=== PATIENT | male | born 1985 | race Caucasian/White ===

== ENCOUNTER 2023-08-15 01:02 | Emergency (ER) | payer BC, SELFPAY ==
--- OUTSIDE RECORDS SUMMARY | 2023-08-15 01:07 | XMS REPORT | Continuity of Care Document ---
Author Name Unknown Address [address] [facility] [place] [address] [facility] thconnect Address [address] [facility] [place] [address] Care Team Providers Care Regional Trainer Name Role Phone Pcp, Patient Does Not Have A Primary Care Physic jessie Campaigns, Generic Provider Attending Clinician Unavailable AMRIT MOODY Attending Clinician Unavailable Amrit Moody MD Attending Clinician [phone] LILIAM PEREA Attending Clinician Unavailable Liliam Perea NP Attending Clinician [phone] Bryon Portillo Attending Clinician Unavailable GHADA VARGHESE Attending Clinician Unavailable CONNER SANTANA Attending Clinician Unavailable Conner Santana MD Attending Clinician [phone] Doctor Unassigned, [place] Attending Clinician U TROY Hollingsworth Attending Clinician Unavailable Troy Redding PA-C Attending Clinician [phone] BAILEY ERVIN Attending Clinician Unavailable Bailey Ervin MD Attending Clinician [phone] Johnna Richard Attending Clinician [phone] JOHNNA ROSENBAUM Attending Clinician Unavailable Unknown, Attending Attending Clinician Unavailab KEYANA Rivera Attending Clinician Unavailable Ebmichi FLIGHT STEWARD, Keyana Attending Clinician [phone] Venita FLIGHT STEWARD, Vipin B Attending Clinician [phone] VIPIN CANO Attending Clinician Unavailable Stevie Eckert Attending Clinician [phone] Miles FLIGHT STEWARD, Ronda Attending Clinician [phone] Nathan Lewis MD Attending Clinician [phone] Willy Ferro Attending Clinician [phone] WILLY ELMORE Attending Clinician Unavailable LATASHA BUTLER Attending Clinician Unavailable Mariana DE LEÓN, Vitor Attending Clinician [phone] NATHAN LEWIS Attending Clinician Unavaillia Atkinson, [facility] Attending Clinician Unavaillia Silveira MD, Ananda Attending Clinician [phone] Caitlyn Ortiz MD Attending Clinician [phone] NANCI VIGIL Attending Clinician Unavail able JOSE MANUEL ALBERTS Attending Clinician Unavailable YOLY LOPES Attending Clinician Unavailable LILIAM PEREA Admitting Clinician Unavailable Physician, No Primary or Family Admitting Clinic jessie Unavailable GHADA VARGHESE Admitting Clinician Unavailable CONNER SANTANA Admitting Clinician Unavailable Tj DE LEÓN, Conner Chandler Admitting Clinician [phone] BAILEY ERVIN Admitting Clinician Unavailable KEYANA RADFORD Admitting Clinician Unavailable VIPIN CANO Admitting Clinician Unavailable NANCI VIGIL Admitting Clinician Unavail able EMERGENCY ROOM, EMERGENCY Admitting Clinician Un available Payers Payer Name Policy Type Policy Number Effective Date Expirati on Date Source Problems Condition Name Condition Details Condition Category Status Onset Date Resolution Date Last Treatment Date Treating Clinician Comments Source Flank pain Flank pain Disease Active 09-02 00:00: 00 [facility] Obesity (BMI 30-39.9) Obesity (BMI 30-39.9) Disease Active 09-02 00:00: 00 [facility] Renal colic on left side Renal colic on left side Disease Active 08-30 00:00: 00 [facility] Allergies, Adverse Reactions, Alerts Allergy Name Allergy Type Status Severity Reaction(s) Onset Date Inactive Date Treating Clinician Comments Source SEAFOOD/ FISH Food Active Anaphylaxis 08-31 00:00: 00 [facility] IODINE AND IODIDE CONTAINI NG PRODUCTS Drug Class Active Anaphylaxis 08-31 00:00: 00 [facility] SHELLFIS H DERIVED DRUG INGREDI Active Anaphylaxis 08-31 00:00: 00 [facility] Iodine And Iodide Containi ng Products Propensi ty to adverse reaction s Active Anaphylaxis 08-31 00:00: 00 [facility] Seafood/ Fish Propensi ty to adverse reaction s Active Anaphylaxis 08-31 00:00: 00 [facility] Iodine And Iodide Containi ng Products Propensi ty to adverse reaction s Active Anaphylaxis 08-31 00:00: 00 [facility] Shellfis h Derived Propensi ty to adverse reaction s Active Anaphylaxis 08-31 00:00: 00 [facility] MEPERIDI NE (PF) DRUG Active Hives 0 07-22 00:00: 00 [facility] Meperidi ne (Pf) Propensi ty to adverse reaction s Active Hives 07-22 00:00: 00 [facility] iodine DA Active SV ANAPHYLAXIS 2012-02 00:00: 00 [facility] meperidi ne DA Active SV RASH 2012-02 00:00: 00 [facility] Social History Social Habit Start Date Stop Date Quantity Comments Source History of tobacco use Cigarette Smoker [facility] Gender identity [facility] Alcohol intake 2023-04-13 00:00:00 2023-04-13 00:00:00 Current non-drinker of alcohol (finding) [facility] Exposure to SARS-CoV-2 (event) 2021-12-06 00:00:00 2021-12-16 11:16:00 Not sure [facility] Cigarettes smoked current (pack per day) - Reported 2021-10-09 00:00:00 2021-10-09 00:00:00 [facility] Cigarette pack-years 2021-10-09 00:00:00 2021-10-09 00:00:00 [facility] Tobacco use and exposure 2021-10-09 00:00:00 2021-10-09 00:00:00 User of smokeless tobacco [facility] History of Social function 2019-12-06 00:00:00 2019-12-06 00:00:00 [facility] Sex Ass[birth year] At 1985 00:00:00 1985 00:00:00 [facility] Smoking Status Start Date Stop Date Source Smokes tobacco daily 2021-10-09 00:00:00 [facility] Medications Ordered Medication Name Filled Medication Name Start Date Stop Date Current Medication? Ordering Clinician Indication Dosage Frequency Signature (SIG) Comments Components Source HYDROcodone -acetaminop hen (NORCO 5) 5-325 mg tablet 1 tablet 04-11 01:49: 38 Yes 1{tbl} 1 tablet, Oral, Q6HPRN, Starting on 04/11/23 at 1949, Until Discontinu ed, Routine, Pain (scale 4-6), Pain (scale 7-10) [facility] lidocaine 2% (XYLOCAINE) 20 mg/mL (2 %) injection 10 mL 04-11 01:45: 00 04-11 01:45 :00 No 10mL 10 mL, Infiltrati on, ONCE, 1 dose, On Wed04/11/23 at 1945, MARIA G [facility] HYDROcodone -acetaminop hen (NORCO 5) 5-325 mg tablet 1 tablet 04-11 01:30: 00 04-11 00:53 :00 No 1{tbl} 1 tablet, Oral, ONCE, 1 dose, On Wed04/11/23 at 1930, Routine [facility] acetaminoph en-codeine 300-30 mg tablet 04-10 00:00: 00 04-18 04:59 :00 No [id number] 1{tbl} Take 1 tablet by mouth every 4 (four) hours as needed for Pain (scale 4-6) or Pain (scale 7-10) for up to 7 days. Indication s: acute pain [facility] doxycycline hyclate 100 mg capsule 03 00:00: 00 04-18 04:59 :00 No [id number] 100mg Take 1 capsule by mouth every 12 (twelve) hours for 7 days. [facility] NaCl 0.9% (NS) bolus infusion 1,000 mL 02-15 23:15: 00 02-16 00:36 :00 No 1000mL at 999 mL/hr, 1,000 mL, IV Infusion, ONCE, 1 dose, On Wed02/15/23 at 1715, [facility] ketorolac (TORADOL) injection 15 mg 02-15 23:15: 00 02-15 23:25 :00 No 15mg 15 mg, Slow IV Push, ONCE, 1 dose, On Wed02/15/23 at 1715, Routine [facility] erythromyci n (ILOTYCIN) 5 mg/gram (0.5 %) ophthalmic ointment 0.5 Inch 08-15 18:45: 00 08-15 18:40 :00 No .5[in_u s] 0.5 Inch, Right Eye, ONCE, 1 dose, On 08/15/22 at 1345, [facility] moxifloxaci n (VIGAMOX) 0.5 % ophthalmic drops 1 Drop 08-15 18:45: 00 08-15 18:34 :00 No 1[drp] 1 Drop, Right Eye, ONCE, 1 dose, On 08/15/22 at 1345, [facility] moxifloxaci n 0.5 % ophthalmic drops 08-15 00:00: 00 Yes [id number] 1[drp] Place 1 Drop in right eye in the morning and 1 Drop at noon and 1 Drop in the evening. [facility] erythromyci n 5 mg/gram (0.5 %) ophthalmic ointment 08-15 00:00: 00 Yes [id number] .5[in_u s] Place 0.5 Inches in right eye at bedtime. Continue until you follow up with eye doctor. [facility] ketorolac (TORADOL) injection 30 mg 2021-02 19:30: 00 12-16 18:40 :00 No 30mg 30 mg, Slow IV Push, ONCE, 1 dose, On Wed12/16/21 at 1330, Routine [facility] NaCl 0.9% (NS) bolus infusion 1,000 mL 2021-02 19:30: 00 12-16 19:37 :00 No 1000mL at 999 mL/hr, 1,000 mL, IV Infusion, ONCE, 1 dose, On Wed12/16/21 at 1330, STAT [facility] clobetasoL 0.05 % ointment 10-29 00:00: 00 Yes [id number] Apply to area(s) 2 (two) times daily. [facility] cetirizine (ZYRTEC) 10 mg tablet 10-29 00:00: 00 11-29 04:59 :00 No [id number] 10mg Take 1 tablet by mouth in the morning for 30 days. [facility] predniSONE 10 mg tablet 10-29 00:00: 00 11-04 04:59 :00 No [id number] 10mg Take 1 tablet by mouth in the morning and 1 tablet in the evening. Do all this for 5 days. [facility] sulfamethox azole-trime thoprim 800-160 mg per tablet 10-09 00:00: 00 10-20 04:59 :00 No [id number] 1{tbl} Take 1 tablet by mouth in the morning and 1 tablet in the evening. Do all this for 10 days. [facility] clobetasoL 0.05 % ointment 10-09 00:00: 00 10-20 04:59 :00 No [id number] Apply to area(s) 2 (two) times daily for 10 days. [facility] amoxicillin -clavulanat e 875-125 mg per tablet 8-20 00:00: 00 10-08 04:59 :00 No [id number] 1{tbl} Take 1 tablet by mouth every 12 (twelve) hours for 10 days. [facility] HYDROcodone -acetaminop hen (NORCO 5) 5-325 mg tablet 2 tablet 06-21 18:30: 00 06-21 17:26 :00 No 2{tbl} 2 tablet, Oral, ONCE, 1 dose, Wed06/21/20 [facility] 1330[facility] dextrose (CLEOCIN) 600 mg/50 mL IV piggyback RTU 600 mg 06-21 16:45: 00 06-21 16:36 :00 No 600mg 600 mg, IV Piggyback, ONCE, 1 dose, Wed06/21/20 at 1145, 50 mL
Reas on for Anti-Infec tive: Empiric Therapy for Suspected Infection< br>Empiric Therapy Site: HEENT
D uration of therapy: 72 hours
R estricted use approved by: ED PROVIDER<b r>Indicati on for Clindamyci n use: facial swelling dental infection [facility] ondansetron (ZOFRAN (PF)) injection 4 mg 06-21 16:15: 00 06-21 15:43 :00 No 4mg 4 mg, Slow IV Push, ONCE, 1 dose, Wed06/21/20 at 1115, MARIA G [facility] FENTanyl PF (SUBLIMAZE (PF)) injection 100 mcg 06-21 16:15: 00 06-21 15:43 :00 No 100ug 100 mcg, Slow IV Push, ONCE, 1 dose, Wed06/21/20 at 1115, Routine [facility] ibuprofen 800 mg tablet 06-21 00:00: 00 Yes [id number] 800mg Take 1 tablet by mouth every 8 (eight) hours as needed for Pain (scale 4-6). [facility] clindamycin 150 mg capsule 14 00:00: 00 07-02 04:59 :00 No [id number] 450mg Take 3 capsules by mouth 3 (three) times daily for 10 days. [facility] acetaminoph en-codeine (TYLENOL #3) 300-30 mg tablet 1 tablet 06-20 04:00: 00 06-20 02:59 :00 No 1{tbl} 1 tablet, Oral, ONCE, 1 dose, Wed06/19/20 at 2300, MARIA G [facility] amoxicillin (TRIMOX) capsule 500 mg 06-20 04:00: 00 06-20 02:59 :00 No 500mg 500 mg, Oral, ONCE NOW, 1 dose, Wed06/19/20 at 2300, MARIA G
Re ason for Anti-Infec tive: Documented Infection< br>Documen loco Infection Site: HEENT
D uration of Therapy: 7 days [facility] ketorolac (TORADOL) injection 30 mg 06-20 04:00: 00 06-20 02:59 :00 No 30mg 30 mg, Intramuscu lar, ONCE, 1 dose, Wed06/19/20 at 2300, MARIA G
Fa culty member approving Restricted medication : STEVIE HAYS [facility] chlorhexidi ne 0.12 % mouthwash 06-19 00:00: 00 Yes [id number] 15mL Swish and spit out 15 mL 2 (two) times daily. [facility] amoxicillin 500 mg tablet 06-19 00:00: 00 06-30 04:59 :00 No [id number] 500mg Take 1 tablet by mouth 3 (three) times daily for 10 days. [facility] acetaminoph en-codeine 300-30 mg tablet 06-19 00:00: 00 06-27 04:59 :00 No [id number] 1{tbl} Take 1 tablet by mouth every 6 (six) hours as needed for Pain (scale 7-10) for up to 7 days. Indication s: acute pain [facility] cefTRIAXone (ROCEPHIN) injection 1,000 mg 04-22 00:15: 00 04-21 23:08 :00 No [id number] 1000mg [facility] clindamycin 300 mg capsule 04-21 00:00: 00 05-02 04:59 :00 No [id number] 300mg Take 1 capsule by mouth 3 (three) times daily for 10 days. [facility] morpHINE injection 4 mg 10-18 07:07: 01 Yes 4mg 4 mg, Slow IV Push, Q30MIN PRN, 3 doses, Starting Nita 10/19/19 at 0207, Until Discontinu ed, Routine, Pain (scale 7-10) [facility] ibuprofen (IBU) tablet 800 mg 10-18 07:00: 10-18 06:03 :00 No 800mg 800 mg, Oral, ONCE, 1 dose, Nita 10/19/19 at 0200, MARIA G [facility] HYDROcodone -acetaminop hen (NORCO) 10-325 mg tablet 1 tablet 10-18 07:00: 00 10-18 06:03 :00 No 1{tbl} 1 tablet, Oral, ONCE NOW, 1 dose, Nita 10/19/19 at 0200, Routine [facility] HYDROcodone -acetaminop hen (NORCO) 10-325 mg tablet 10-18 00:00: 00 10-26 04:59 :00 No [id number] 1{tbl} Take 1 tablet by mouth every 6 (six) hours as needed for Pain (scale 7-10) for up to 7 days. Indication s: acute pain [facility] HYDROcodone -acetaminop hen (NORCO) 10-325 mg tablet 1 tablet 07-17 07:15: 00 07-17 06:22 :00 No 1{tbl} 1 tablet, Oral, ONCE NOW, 1 dose, 07/18/19 at 0215, Routine [facility] ketorolac (TORADOL) injection 30 mg 07-17 07:15: 00 07-17 06:22 :00 No 30mg 30 mg, Intramuscu lar, ONCE, 1 dose, Wed07/18/19 at 0215, [facility] G
[facility] member approving Restricted medication : CAITLYN ORTIZ [facility] FENTanyl PF (SUBLIMAZE (PF)) injection 100 mcg 07-17 06:14: 04 Yes 100ug 100 mcg, Intramuscu lar, Q30MIN PRN, 3 doses, Starting Wed07/18/19 at 0114, Until Discontinu ed, MARIA G, Pain (scale 7-10) [facility] HYDROcodone -acetaminop hen 5-325 mg tablet 07-17 00:00: 00 04-21 00:00 :00 No [id number] 1{tbl} Take 1 tablet by mouth every 4 (four) hours as needed for Pain (scale 7-10). [facility] ketorolac 10 mg tablet 2018-02 2-10 00:00: 00 04-21 00:00 :00 No [id number] 10mg Take 1 tablet by mouth every 6 (six) hours as needed for Pain (scale 4-6). [facility] docusate 100 mg capsule 09-04 00:00: 00 04-21 00:00 :00 No 100mg Take 1 capsule by mouth daily. [facility] HYDROcodone -acetaminop hen 5-325 mg tablet 09-03 00:00: 00 04-21 00:00 :00 No 1{tbl} Take 1 tablet by mouth every 4 (four) hours as needed for Pain (scale 4-6). [facility] tamsulosin 0.4 mg 24 hr capsule 08-31 00:00: 00 04-21 00:00 :00 No .4mg Take 1 capsule by mouth at bedtime. [facility] Immunizations Ordered Immunization Name Filled Immunization Name Date Status Comments Source TD 2021-09-27 00:00:00 Completed [facility] TDAP 2021-09-27 00:00:00 Completed [facility] TDAP 2021-09-27 00:00:00 Completed [facility] TDAP 2021-09-27 00:00:00 Completed [facility] TDAP 2021-09-27 00:00:00 Completed [facility] TDAP 2021-09-27 00:00:00 Completed [facility] TDAP 2021-09-27 00:00:00 Completed [facility] TDAP 2021-09-27 00:00:00 Completed [facility] TDAP 2021-09-27 00:00:00 Completed [facility] TDAP 2021-09-27 00:00:00 Completed [facility] TDAP 2021-09-27 00:00:00 Completed [facility] TDAP 2021-09-27 00:00:00 Completed [facility] TDAP 2021-09-27 00:00:00 Completed [facility] TDAP Unknown Completed [facility] TDAP Unknown Completed [facility] TDAP Unknown Completed [facility] TDAP Unknown Completed [facility] TDAP Unknown Completed [facility] TDAP Unknown Completed [facility] TDAP Unknown Completed [facility] Vital Signs Vital Name Observation Time Observation Value Comments S ource Systolic blood pressure 2023-04-13 14:56:00 135 mm[Hg] [facility] Diastolic blood pressure 2023-04-13 14:56:00 99 mm[Hg] [facility] Heart rate 2023-04-13 14:56:00 81 /min [facility] Body temperature 2023-04-13 14:56:00 35.94 Valery [facility] Body height 2023-04-13 14:56:00 188 cm [facility] Body weight 2023-04-13 14:56:00 145.378 kg [facility] BMI 2023-04-13 14:56:00 41.15 kg/m2 [facility] Systolic blood pressure 2023-04-12 02:24:00 146 mm[Hg] [facility] Diastolic blood pressure 2023-04-12 02:24:00 103 mm[Hg] [facility] Heart rate 2023-04-12 02:24:00 81 /min [facility] Body temperature 2023-04-12 02:24:00 36.83 Valery [facility] Respiratory rate 2023-04-12 02:24:00 18 /min [facility] Oxygen saturation in Arterial blood by Pulse oximetry 2023-04-12 02:24:00 98 /min [facility] Body height 2023-04-12 00:02:00 188 cm [facility] Body weight 2023-04-12 00:02:00 127.007 kg [facility] BMI 2023-04-12 00:02:00 35.95 kg/m2 [facility] Systolic blood pressure 2023-02-16 00:28:00 116 mm[Hg] [facility] Diastolic blood pressure 2023-02-16 00:28:00 75 mm[Hg] [facility] Heart rate 2023-02-16 00:28:00 78 /min [facility] Respiratory rate 2023-02-16 00:28:00 16 /min [facility] Oxygen saturation in Arterial blood by Pulse oximetry 2023-02-16 00:28:00 95 /min [facility] Body temperature 2023-02-15 22:34:00 36.67 Valery [facility] Body height 2023-02-15 22:32:00 188 cm [facility] Body weight 2023-02-15 22:32:00 127.007 kg [facility] BMI 2023-02-15 22:32:00 35.95 kg/m2 [facility] Body weight 2022-08-28 13:24:00 136.079 kg [facility] BMI 2022-08-28 13:24:00 38.52 kg/m2 [facility] Body weight 2022-08-20 18:16:00 136.079 kg [facility] BMI 2022-08-20 18:16:00 38.52 kg/m2 [facility] Systolic blood pressure 2022-08-15 18:00:00 135 mm[Hg] [facility] Diastolic blood pressure 2022-08-15 18:00:00 75 mm[Hg] [facility] Heart rate 2022-08-15 18:00:00 82 /min [facility] Respiratory rate 2022-08-15 18:00:00 18 /min [facility] Oxygen saturation in Arterial blood by Pulse oximetry 2022-08-15 18:00:00 98 /min [facility] Body temperature 2022-08-15 16:27:00 36.67 Valery [facility] Body weight 2022-08-15 16:27:00 136.079 kg [facility] BMI 2022-08-15 16:27:00 38.52 kg/m2 [facility] Systolic blood pressure 2022-08-15 14:45:00 131 mm[Hg] [facility] Diastolic blood pressure 2022-08-15 14:45:00 94 mm[Hg] [facility] Heart rate 2022-08-15 14:45:00 63 /min [facility] Respiratory rate 2022-08-15 14:45:00 18 /min [facility] Oxygen saturation in Arterial blood by Pulse oximetry 2022-08-15 14:45:00 97 /min [facility] Body temperature 2022-08-15 13:59:00 36.56 Valery [facility] Body height 2022-08-15 13:59:00 188 cm [facility] Body weight 2022-08-15 13:59:00 136.079 kg [facility] BMI 2022-08-15 13:59:00 38.52 kg/m2 [facility] Systolic blood pressure 2021-12-16 18:59:23 152 mm[Hg] [facility] Diastolic blood pressure 2021-12-16 18:59:23 92 mm[Hg] [facility] Heart rate 2021-12-16 18:59:23 78 /min [facility] Respiratory rate 2021-12-16 18:59:23 18 /min [facility] Oxygen saturation in Arterial blood by Pulse oximetry 2021-12-16 18:59:23 96 /min [facility] Body temperature 2021-12-16 17:16:00 37.33 Valery [facility] Body height 2021-12-16 17:16:00 188 cm [facility] Body weight 2021-12-16 17:16:00 127.007 kg [facility] BMI 2021-12-16 17:16:00 35.95 kg/m2 [facility] Systolic blood pressure 2021-10-30 00:24:00 142 mm[Hg] [facility] Diastolic blood pressure 2021-10-30 00:24:00 95 mm[Hg] [facility] Heart rate 2021-10-30 00:23:00 74 /min [facility] Body temperature 2021-10-30 00:23:00 36.33 Valery [facility] Respiratory rate 2021-10-30 00:23:00 14 /min [facility] Body height 2021-10-30 00:23:00 188 cm [facility] Body weight 2021-10-30 00:23:00 132.995 kg [facility] BMI 2021-10-30 00:23:00 37.64 kg/m2 [facility] Oxygen saturation in Arterial blood by Pulse oximetry 2021-10-30 00:23:00 96 /min [facility] Systolic blood pressure 2021-10-09 23:26:00 127 mm[Hg] [facility] Diastolic blood pressure 2021-10-09 23:26:00 82 mm[Hg] [facility] Heart rate 2021-10-09 23:26:00 75 /min [facility] Body temperature 2021-10-09 23:26:00 36.5 Valery [facility] Respiratory rate 2021-10-09 23:26:00 18 /min [facility] Body height 2021-10-09 23:26:00 188 cm [facility] Body weight 2021-10-09 23:26:00 132.541 kg [facility] BMI 2021-10-09 23:26:00 37.52 kg/m2 [facility] Oxygen saturation in Arterial blood by Pulse oximetry 2021-10-09 23:26:00 97 /min [facility] Systolic blood pressure 2021-09-28 04:27:00 150 mm[Hg] [facility] Diastolic blood pressure 2021-09-28 04:27:00 90 mm[Hg] [facility] Heart rate 2021-09-28 04:27:00 65 /min [facility] Body temperature 2021-09-28 04:27:00 36.67 Valery [facility] Respiratory rate 2021-09-28 04:27:00 18 /min [facility] Oxygen saturation in Arterial blood by Pulse oximetry 2021-09-28 04:27:00 98 /min [facility] Body height 2021-09-28 02:21:00 188 cm [facility] Body weight 2021-09-28 02:21:00 127.007 kg [facility] BMI 2021-09-28 02:21:00 35.95 kg/m2 [facility] Systolic blood pressure 2020-06-21 17:00:00 152 mm[Hg] [facility] Diastolic blood pressure 2020-06-21 17:00:00 108 mm[Hg] [facility] Heart rate 2020-06-21 17:00:00 56 /min [facility] Respiratory rate 2020-06-21 17:00:00 17 /min [facility] Oxygen saturation in Arterial blood by Pulse oximetry 2020-06-21 17:00:00 95 /min [facility] Body temperature 2020-06-21 14:56:00 36.33 Valery [facility] Body height 2020-06-21 14:56:00 188 cm [facility] Body weight 2020-06-21 14:56:00 127.007 kg [facility] BMI 2020-06-21 14:56:00 35.95 kg/m2 [facility] Systolic blood pressure 2020-06-20 02:28:00 145 mm[Hg] [facility] Diastolic blood pressure 2020-06-20 02:28:00 91 mm[Hg] [facility] Heart rate 2020-06-20 02:28:00 89 /min [facility] Body temperature 2020-06-20 02:28:00 36.44 Valery [facility] Respiratory rate 2020-06-20 02:28:00 18 /min [facility] [facility] Body height 2020-06-20 02:28:00 188 cm [facility] Body weight 2020-06-20 02:28:00 128.368 kg [facility] BMI 2020-06-20 02:28:00 36.34 kg/m2 [facility] Oxygen saturation in Arterial blood by Pulse oximetry 2020-06-20 02:28:00 97 /min [facility] Systolic blood pressure 2020-04-21 22:54:00 136 mm[Hg] [facility] Diastolic blood pressure 2020-04-21 22:54:00 85 mm[Hg] [facility] Heart rate 2020-04-21 22:54:00 88 /min [facility] Body temperature 2020-04-21 22:54:00 36.78 Valery [facility] Respiratory rate 2020-04-21 22:54:00 20 /min [facility] Body height 2020-04-21 22:54:00 185.4 cm [facility] Body weight 2020-04-21 22:54:00 128.822 kg [facility] BMI 2020-04-21 22:54:00 37.47 kg/m2 [facility] Oxygen saturation in Arterial blood by Pulse oximetry 2020-04-21 22:54:00 98 /min [facility] Systolic blood pressure 2019-12-06 18:30:00 124 mm[Hg] [facility] Diastolic blood pressure 2019-12-06 18:30:00 87 mm[Hg] [facility] Heart rate 2019-12-06 18:30:00 96 /min [facility] Respiratory rate 2019-12-06 18:30:00 19 /min [facility] Body height 2019-12-06 18:30:00 188 cm [facility] Body weight 2019-12-06 18:30:00 127.007 kg [facility] BMI 2019-12-06 18:30:00 35.95 kg/m2 [facility] Body weight 2019-11-08 18:35:00 120.203 kg [facility] BMI 2019-11-08 18:35:00 34.02 kg/m2 [facility] Systolic blood pressure 2019-10-20 14:27:00 136 mm[Hg] [facility] Diastolic blood pressure 2019-10-20 14:27:00 92 mm[Hg] [facility] Heart rate 2019-10-20 14:27:00 76 /min [facility] Body height 2019-10-20 14:20:00 188 cm [facility] Body weight 2019-10-20 14:20:00 120.203 kg [facility] BMI 2019-10-20 14:20:00 34.02 kg/m2 [facility] Body temperature 2019-10-19 08:09:05 36.72 Valery [facility] Systolic blood pressure 2019-10-19 07:35:52 118 mm[Hg] [facility] Diastolic blood pressure 2019-10-19 07:35:52 80 mm[Hg] [facility] Heart rate 2019-10-19 07:35:52 66 /min [facility] Respiratory rate 2019-10-19 07:35:52 16 /min [facility] Oxygen saturation in Arterial blood by Pulse oximetry 2019-10-19 07:35:52 94 /min [facility] Body weight 2019-10-19 05:50:00 120.203 kg [facility] BMI 2019-10-19 05:50:00 34.02 kg/m2 [facility] Systolic blood pressure 2019-07-18 07:56:09 148 mm[Hg] [facility] Diastolic blood pressure 2019-07-18 07:56:09 93 mm[Hg] [place] [facility] Heart rate 2019-07-18 07:56:09 72 /min [facility] Respiratory rate 2019-07-18 07:56:09 17 /min [facility] Oxygen saturation in Arterial blood by Pulse oximetry 2019-07-18 07:56:09 97 /min [place] [facility] Body temperature 2019-07-18 06:13:00 37 Valery [facility] Body height 2019-07-18 06:13:00 188 cm [facility] Body weight 2019-07-18 06:13:00 120.203 kg [facility] BMI 2019-07-18 06:13:00 34.02 kg/m2 [facility] Procedures Procedure Date / Time Performed Performing Clinician Source CONSENT/REFUSAL FOR DIAGNOSIS AND TREATMENT 2023-04-12 00:01:20 Doctor Unassigned, [place] [facility] EKG-12 LEAD 2023-02-16 00:18:55 Ghada Varghese [facility] TROPONIN I 2023-02-15 23:14:00 Ghada Varghese [facility] COMP. METABOLIC PANEL (39315) 2023-02-15 23:14:00 Ghada Varghese [facility] CBC WITH DIFF 2023-02-15 23:14:00 Ghada Varghese [facility] RAPID INFLUENZA A/B 2023-02-15 23:14:00 [facility] 2023-02-15 23:14:00 [facility] (ID NOW RAPID TESTING) 2023-02-15 23:14:00 Ghada Varghese [facility] XR CHEST 1 VW 2023-02-15 22:58:00 Ghada Varghese [facility] CONSENT/REFUSAL FOR DIAGNOSIS AND TREATMENT 2023-02-15 22:14:02 Doctor Unassigned, [place] [facility] FOREIGN BODY REMOVAL, CORNEA - OD - RIGHT EYE 2022-08-20 19:24:27 Conner Santana [facility] DISCLOSURE AND CONSENT, MEDICAL AND SURGICAL PROCEDURES 2022-08-20 05:01:00 Doctor Unassigned, [place] [facility] CONSENT/REFUSAL FOR DIAGNOSIS AND TREATMENT 2022-08-15 16:25:35 Doctor Unassigned, [place] [facility] CONSENT/REFUSAL FOR DIAGNOSIS AND TREATMENT 2022-08-15 13:56:18 Doctor Unassigned, [place] [facility] TROPONIN I 2021-12-16 18:36:00 Bailey Ervin [facility] BASIC METABOLIC PANEL (NA, K, CL, CO2, GLUCOSE, BUN, CREATININE, CA) 2021-12-16 18:36:00 Bailey Ervin [facility] CBC WITH DIFF 2021-12-16 18:36:00 [facility] X[facility] CHEST 1 VW 2021-12-16 18:10:52 [facility] RAPID INFLUENZA A/B 2021-12-16 17:47:00 Bailey Ervin [facility] COVID-19 (ID NOW RAPID TESTING) 2021-12-16 17:47:00 Bailey Ervin [facility] CONSENT/REFUSAL FOR DIAGNOSIS AND TREATMENT 2021-12-16 17:06:51 Doctor Unassigned, [place] [facility] CONSENT/REFUSAL FOR DIAGNOSIS AND TREATMENT 2021-10-30 00:23:48 Doctor Unassigned, [place] [facility] ED LACERATION REPAIR 2021-09-28 04:19:31 Raisa Radford [facility] XR HAND 3+ VW RIGHT 2021-09-28 03:47:24 Keyana Radford [facility] CONSENT/REFUSAL FOR DIAGNOSIS AND TREATMENT 2021-09-28 02:08:32 Doctor Unassigned, [place] [facility] CT MAXILLOFACIAL/MANDIBLE WO CONTRAST 2020-06-21 15:34:02 Vipin Cano [facility] ASSIGNMENT OF BENEFITS 2020-06-21 14:46:55 Docto r Unassigned, [place] [facility] CONSENT/REFUSAL FOR DIAGNOSIS AND TREATMENT 2020-06-21 14:46:25 Doctor Unassigned, [place] [facility] CONSENT/REFUSAL FOR DIAGNOSIS AND TREATMENT 2020-06-20 02:23:31 Doctor Unassigned, [place] [facility] XR HAND 3+ VW RIGHT 2019-12-06 18:59:11 Ro Lewis [facility] XR HAND <3 VW RIGHT 2019-11-08 18:34:30 Willy Elmore [facility] NON [facility] FACILITY DOCUMENTATION 2019-10-25 05:01:00 Doctor Unassigned, [place] [facility] XR CHEST 2 VW 2019-10-20 16:21:54 Nathan Lewis Un [facility] BASIC METABOLIC PANEL (NA, K, CL, CO2, GLUCOSE, BUN, CREATININE, CA) 2019-10-20 16:09:00 Ananda Silveira [facility] CBC WITH DIFF 2019-10-20 16:09:00 Ananda Silveira [facility] EKG-12 LEAD 2019-10-20 15:38:55 Doctor Unass igned, [place] [facility] BASIC METABOLIC PANEL (NA, K, CL, CO2, GLUCOSE, BUN, CREATININE, CA) 2019-10-19 07:25:00 Caitlyn Ortiz [facility] CBC WITH DIFF 2019-10-19 07:25:00 Caitlyn Ortiz [facility] [place] APPLY FOREARM SPLINT,STATIC 2019-10-19 06:48:00 Caitlyn Ortiz [facility] [place] CLOSED RX METACARPAL FX,MANIP 2019-10-19 06:48:00 Caitlyn Ortiz [facility] XR HAND 3+ VW RIGHT 2019-10-19 06:05:49 Caitlyn Ortiz [facility] CONSENT/REFUSAL FOR DIAGNOSIS AND TREATMENT 2019-10-19 05:46:26 Doctor Unassigned, [place] [facility] Encounters Start Date/Time End Date/Time Encounter Type Admission Type Attending Clinicians Care Facility Care Department Encounter ID Source 2020-12-08 18:47:40 Emergency [facility] [id number] [facility] 2020-12-06 16:44:45 Emergency [facility] [id number] [facility] 2020-12-06 00:03:59 Emergency [facility] [id number] [facility] 2023-04-21 00:00:00 2023-04-21 00:00:00 Letter (Out) Campaigns, Generic Provider [facility] 1.114 350.1.13.10 4.2.7.2.686 [id number] [facility] 2023-04-13 09:30:00 2023-04-13 09:54:51 Outpatient R AMRIT MOODY [facility] [id number] [facility] 2023-04-13 09:30:00 2023-04-13 09:54:51 Office Visit Amrit Moody [facility] 1..114 350.1.13.10 4.2.7.2.686 [id number] [facility] 2023-04-11 18:07:00 2023-04-11 20:41:00 Emergency X [facility] E[facility] [id number] [facility] 2023-04-11 18:07:00 2023-04-11 20:41:00 [facility] ([facility] 1..114 350.1.13.10 4.2.7.2.686 [id number] [facility] 2023-02-17 21:23:00 2023-02-17 22:18:00 Emergency [facility] [id number] [facility] 2023-02-15 16:33:00 2023-02-15 19:05:00 Emergency X SELINA [facility] ERT [id number] [facility] 2023-02-15 16:33:00 2023-02-15 19:05:00 Emergency Selina ziggy [facility] ([facility]) 1.2.114 350.1.13.10 4.2.7.2.686 [id number] [facility] 2022-08-28 08:00:00 2022-08-28 09:12:09 Outpatient R CONNER SANTANA [facility] [id number] [facility] 2022-08-28 08:00:00 2022-08-28 09:12:09 Office Visit Conner Santana [facility] [place] 1.840.114 350.1.13.10 4.2.7.2.686 [id number] [facility] 2022-08-20 13:45:00 2022-08-20 14:00:00 Office Visit Conner Santana [facility] [place] 1.840.114 350.1.13.10 4.2.7.2.686 [id number] [facility] 2022-08-20 13:45:00 2022-08-20 13:45:00 Outpatient R CONNER SANTANA [facility] [id number] [facility] 2022-08-20 00:00:00 2022-08-20 00:00:00 Orders Only Doctor Unassigned, [place] [facility] 1.840.114 350.1.13.10 4.2.7.2.686 [id number] [facility] 2022-08-15 11:28:00 2022-08-15 13:45:00 Emergency X CONNER SANTANA [facility] ERT [id number] [facility] 2022-08-15 11:28:00 2022-08-15 13:45:00 Emergency Conner Santana [facility] 1.84.114 350.1.13.10 4.2.7.2.686 [id number] [facility] 2022-08-15 08:56:00 2022-08-15 10:12:00 Emergency X TROY REDDING [facility] ERT [id number] [facility] 2022-08-15 08:56:00 2022-08-15 10:12:00 Emergency Troy Redding [facility] ([facility]) 1.2.840.114 350.1.13.10 4.2.7.2.686 [id number] [facility] 2021-12-16 11:18:00 2021-12-16 13:52:00 Emergency X BAILEY ERVIN [facility] ERT [id number] [facility] 2021-12-16 11:18:00 2021-12-16 13:52:00 Emergency Bailey Ervin [facility] ([facility]) 1.2.840.114 350.1.13.10 4.2.7.2.686 [id number] [facility] 2021-11-26 00:00:00 2021-11-26 00:00:00 Refill [facility] 1.840.114 350.1.13.10 4.2.7.2.686 [id number] [facility] 2021-10-29 19:15:00 2021-10-29 20:14:35 Outpatient R JOHNNA ROSENBAUM [facility] [id number] [facility] 2021-10-29 19:15:00 2021-10-29 20:14:35 Urgent Care Johnna Rosenbaum Unknown, Attending [facility] 1.840.114 350.1.13.10 4.2.7.2.686 [id number] [facility] 2021-10-29 00:00:00 2021-10-29 00:00:00 Orders Only Doctor Unassigned, [place] [facility] 1.2.840.114 350.1.13.10 4.2.7.2.686 [id number] [facility] 2021-10-09 18:30:00 2021-10-09 18:45:00 Urgent Care Robi Patsy Boyd [facility] 1..114 350.1.13.10 4.2.7.2.686 [id number] [facility] 2021-10-09 18:30:00 2021-10-09 18:30:00 Outpatient R ROSENBAMU JOHNNA [facility] [id number] [facility] 2021-09-27 21:23:00 2021-09-27 23:29:00 Emergency X KEYANA RADFORD [facility] ERT [id number] [facility] 2021-09-27 21:23:00 2021-09-27 23:29:00 Emergency Leannacaryn Keyana [facility] ([facility]) 1..114 350.1.13.10 4.2.7.2.686 [id number] [facility] 2020-06-21 09:57:00 2020-06-21 12:50:00 Emergency Venita Vipin B [facility] ([facility]) 1..114 350.1.13.10 4.2.7.2.686 [id number] [facility] 2020-06-21 09:57:00 2020-06-21 12:50:00 Emergency X VIPIN CANO [facility] ERT [id number] [facility] 2020-06-19 21:31:00 2020-06-19 22:24:00 Emergency Stevie Hays [facility] 1..114 350.1.13.10 4.2.7.2.686 [id number] [facility] 2020-04-21 17:47:59 2020-04-21 18:02:59 Urgent Care Ronda Aquino [facility] 1.2.114 350.1.13.10 4.2.7.2.686 [id number] [facility] 2020-04-21 17:45:00 2020-04-21 17:45:00 Outpatient R [facility] [id number] [facility] 2019-12-06 13:59:11 2019-12-06 23:59:00 Hospital Encounter LewisNathan [facility] maya Esparza 1.840.114 350.1.13.10 4.2.7.2.686 [id number] [facility] 2019-12-06 13:24:34 2019-12-06 14:06:44 Office Visit Nathan Lewis [facility] maya Esparza 1..840.114 350.1.13.10 4.2.7.2.686 [id number] [facility] 2019-12-06 13:15:00 2019-12-06 13:15:00 Outpatient R WILLY ELMORE [facility] [id number] [facility] 2019-11-13 08:50:00 2019-11-13 08:50:00 Outpatient R LATASHA BUTLER [facility] [id number] [facility] 2019-11-13 00:00:00 2019-11-13 00:00:00 Abstract Vitor Peña [facility] [place] 1..840.114 350.1.13.10 4.2.7.2.686 [id number] [facility] 2019-11-08 13:34:30 2019-11-08 23:59:00 Hospital Encounter Macey Willy [facility] maya Esparza 1..840.114 350.1.13.10 4.2.7.2.686 [id number] [facility] 2019-11-08 13:27:16 2019-11-08 13:42:16 Office Visit Willy Elmore [facility] maya Esparza 1.2840.114 350.1.13.10 4.2.7.2.686 [id number] [facility] 2019-11-08 13:30:00 2019-11-08 13:30:00 Outpatient R WILLY ELMORE [facility] [id number] [facility] 2019-10-25 12:23:00 2019-10-25 23:59:00 Hospital Encounter Nathan Lewis [facility] 1.20.114 350.1.13.10 4.2.7.2.686 [id number] [facility] 2019-10-25 00:00:00 2019-10-25 00:00:00 Outpatient R NATHAN LEWIS [facility] [id number] [facility] 2019-10-25 00:00:00 2019-10-25 00:00:00 Orders Only Doctor Unassigned, [place] [facility] 1.2840.114 350.1.13.10 4.2.7.2.686 [id number] [facility] 2019-10-20 10:24:37 2019-10-20 23:59:00 Hospital Encounter Nathan Lewis [facility] 1.20.114 350.1.13.10 4.2.7.2.686 [id number] [facility] 2019-10-20 10:18:34 2019-10-20 10:33:34 Bicycle Messenger Visit Pob, Adc Lab Main Adarsh [facility] 1.2.114 350.1.13.10 4.2.7.2.686 [id number] [facility] 2019-10-20 09:04:35 2019-10-20 09:19:35 Office Visit Wlily Elmore [facility] maya Esparza 1.2.840.114 350.1.13.10 4.2.7.2.686 [id number] [facility] 2019-10-20 09:15:00 2019-10-20 09:15:00 Outpatient WILLY MCKEON [facility] [id number] [facility] 2019-10-20 00:00:00 2019-10-20 00:00:00 Ancillary Orders Lewis Nathan Stevenson [facility] 1.2.840.114 350.1.13.10 4.2.7.2.686 [id number] [facility] 2019-10-19 00:48:00 2019-10-19 03:21:00 [facility] 1.2.840.114 350.1.13.10 4.2.7.2.686 [id number] [facility] 2019-07-18 01:17:03 2019-07-18 02:57:00 Emergency [facility] ([facility]) 1.2.840.114 350.1.13.10 4.2.7.2.686 [id number] [facility] 2019-01-17 15:52:56 2019-01-17 18:54:00 Emergency X NANCI VIGIL [facility] ERT [id number] [facility] 2007-08-17 13:38:00 2007-08-17 15:18:00 Emergency X JOSE MANUEL ALBERTS [facility] ERT [id number] [facility] 2007-02-15 18:48:00 2007-02-16 01:03:00 Emergency X YOLY LOPES [facility] ERT [id number] [facility] Results Test Description Test Time Test Comments Results Result Co mments Source XR CHEST 1 [id number] 23:01:28PROCEDURE: XR CHEST 1 VW CLINICAL INDICATION: chest pain COMPARISON: 12/16/2021 FINDINGS: The lung volumes are low with crowding of perihilar structures.No pleural effusion or pneumothorax is seen. The cardiomediastinal silhouette is normal. No acute bony abnormality.[facility]/MANDIBLE WO [id number] 16:25:47 Right maxillary lateral central incisor periapical lucency with smalladjacent subperiosteal abscessnot excluded noting contrast enhanced studyis more sensitive for the detection of abscess. Adjacentright buccal spaceand facial cellulitis. EXAMINATION: ?CT MAXILLOFACIAL/MANDIBLE WO CONTRAST HISTORY: Cellulitis, face worsening right facial pain / dental pain,?abscess COMPARISON: None. TECHNIQUE: Routine CT of the maxillofacial bones was obtained. . ? FINDINGS: No fracture of the maxillofacial bones. ?There are scattered paranasal sinus inflammatory changes with mucoidsecretions in the left frontal and maxillary sinuses, clinically correlatefor acute sinusitis.There are multiple dental caries with right lateral central incisorperiapical lucency with small adjacent subperiosteal abscess notexcluded.Adjacent right buccal space soft tissue swelling and fat stranding,clinically correlate for cellulitis. Left lateral central incisorperiapical lucency. Right mandibular canine periapical lucency.Mildly enlarged bilateral level 1 cervical lymph nodes, likely reactive. [facility], Radiant Results Inft User - 06/21/2020 11:26 AM CDTEXAMINATION: CT MAXILLOFACIAL/MANDIBLE WO CONTRASTHISTORY: Cellulitis, face worsening right facial pain / dental pain,?abscess COMPARISON: None.TECHNIQUE: Routine CTof the maxillofacial bones was obtained. . FINDINGS:No fracture of the maxillofacial bones. There are scattered paranasal sinus inflammatory changes with mucoidsecretions in the left frontal and maxillary sinuses, clinically correlatefor acute sinusitis.There are multiple dental caries with right lateral central incisorperiapical lucency with small adjacent subperiosteal abscess not excluded.Adjacent right buccal space soft tissue swelling and fat stranding,clinically correlate for cellulitis. Left lateral central incisorperiapical lucency. Right mandibular canine periapical lucency.Mildly enl arged bilateral level 1 cervical lymph nodes, likely reactive.IMPRESSIONRight maxillary lateral central incisor periapical lucency with smalladjacent subperiosteal abscess not excluded noting contrast enhanced studyis more sensitive for the detection of abscess. Adjacent right buccal spaceand facial cellulitis.[facility] 3+ VW [id number] 19:48:35Fractures healing in acceptable positionUnB[facility] & [facility] Hill[facility]stXR HAND <3 VW [id number] 19:19:07Status post open reduction internal fixation of the fourth metacarpal with a transverse pin in the fifth metacarpal there are good signs of callus formation fractures in acceptable alignment [facility]OL[facility] PAN[facility] (NA, K, CL, CO2, GLUCOSE, BUN, CREATININE, CA)2019-10-20 17:33:00* Test Item Value Reference Range Interpretation Comme nts NA (test code = 4346110147) 140 mmol/L 135-145 K (test code = 5275091701) 4.7 mmol/L 3.5-5 CL (test code = 9350253308) 100 mmol/L 98-108 CO2 TOTAL (test code = 5532464679) 29 mmol/L 23-31 AGAP (test code = 0666740262) 2-16 BUN (test code = 4969565084) 14 mg/dL 7-23 GLUCOSE (test code = 4558337198) 101 mg/dL 70-110 CREATININE (test code = 4951392932) 0.89 mg/dL 0.6-1.25 CALCIUM (test code = 6104517451) 9.6 mg/dL 8.6-10.6 eGFR Calculation (Non-) (test code = 4831785483) mL/min/1.73m2 eGFR Calculation () (test code = 9059800980) mL/min/1.73m2 MARU (test code = MARU) Association of Glomerular Filtration Rate (GFR) and Staging of Kidney Disease* + -+ + ---+| GFR (mL/min/1.73 m2) ?| With Kidney Damage ?| ?Without Kidney Damage+ -------+ ------+ ---------+| ?>90 ?| ?Stage one ?| ? Normal ?+ --+ -+ ----+| ?60-89 ?| ?Stage two ?| ? Decreased GFR ? + -+ + ---+| ?30-59 ?| ?Stage three ?| ? Stage three ? + -+ + ---+| ?15-29 ?| ?Stage four ? | ? Stage four ?+ --+ -+ ----+| ?<15 (or dialysis) ? ?| ?Stage five ? | ? Stage five ?+ --+ -+ ----+ *Each stage assumes the associated GFR level has been in effect for at least three months. ?Stages 1 to 5, with or without kidney disease, indicate chronic kidney disease. Notes: Determination of stages one and two (with eGFR >59mL/min/1.73 m2) requires estimation of kidney damage for at least three months as defined by structural or functional abnormalities of the kidney, manifested by either:Pathological abnormalities or Markers of kidney damage (including abnormalities in the composition of the blood or urine or abnormalities in imaging tests). [facility] 2 [id number] 16:24:46EXAM: XR CHEST 2 VW HISTORY: Closed fracture of right hand, initial encounter COMPARISON: None. FINDINGS: The heart and great vessels are normal and the lungs are well expanded andclear. ? [facility], Radiant Results Inft User - 10/20/2019 11:25 AM CDTEXAM: XR CHEST 2 VWHISTORY: Closed fracture of right hand, initial encounter COMPARISON: None.FINDINGS:The heart and great vessels are normal and the lungs are well expanded andclear.[facility] WITH DIFF 2019-10-20 16:24:00* Test Item Value Reference Range Interpretation Comme nts WBC (test code = 6690-2) See_Comment [Automated [email or web address]] The system which generated this result transmitted reference range: 4.20 - 10.70 10*3/?L. The reference range was not used to interpret this result as normal/abnormal. RBC (test code = 789-8) See_Comment [Automated [email or web address]] The system which generated this result transmitted reference range: 4.26 - 5.52 10*6/?L. The reference range was not used to interpret this result as normal/abnormal. HGB (test code = 718-7) 15.3 g/dL 12.2-16.4 HCT (test code = 4544-3) 45.0 % 38.4-49.3 MCV (test code = 787-2) 93.9 fL 81.7-95.6 MCH (test code = 785-6) 31.9 pg 26.1-32.7 MCHC (test code = 786-4) 34.0 g/dL 31.2-35 RDW-SD (test code = 66460-4) 43.5 fL 38.5-51.6 RDW-CV (test code = 788-0) 12.6 % 12.1-15.4 PLT (test code = 777-3) See_Comment [Automated messa ge] The system which generated this result transmitted reference range: 150 - 328 10*3/?L. The reference range was not used to interpret this result as normal/abnormal. MPV (test code = 13233-7) 10.8 fL 9.8-13 NRBC/100 WBC (test code = 7446096699) See_Comment [Automated [employer]] The system which generated this result transmitted reference range: 0.0 - 10.0 /100 WBCs. The reference range was not used to interpret this result as normal/abnormal. NRBC x10^3 (test code = 6251914765) <0.01 See_Comment [Automated messa ge] The system which generated this result transmitted reference range: 10*3/?L. The reference range was not used to interpret this result as normal/abnormal. GRAN MAT (NEUT) % (test code = 770-8) 54.1 % IMM GRAN % (test code = 8535206615) 0.30 % LYMPH % (test code = 736-9) 38.2 % MONO % (test code = 5905-5) 6.5 % EOS % (test code = 713-8) 0.6 % BASO % (test code = 706-2) 0.3 % GRAN MAT x10^3(ANC) (test code = 8133175234) 5.22 10*3/uL 1.99-6.95 IMM GRAN x10^3 (test code = 9417018706) 0.03 10*3/uL 0-0.06 LYMPH x10^3 (test code = 731-0) 3.69 10*3/uL 1.09-3.23 H MONO x10^3 (test code = 742-7) 0.63 10*3/uL 0.36-1.02 EOS x10^3 (test code = 711-2) 0.06 10*3/uL 0.06-0.53 BASO x10^3 (test code = 704-7) 0.03 10*3/uL 0.01-0.09 Lab Interpretation (test code = 79510-1) Abnormal [facility] METABOLIC PANEL (NA, K, CL, CO2, GLUCOSE, BUN, CREATININE, CA)2019-10-19 07:45:00* Test Item Value Reference Range Interpretation Comme nts NA (test code = 5394065772) 140 mmol/L 135-145 K (test code = 9298491666) 4.5 mmol/L 3.5-5 CL (test code = 2544072595) 109 mmol/L 98-108 H CO2 TOTAL (test code = 7045464232) 26 mmol/L 23-31 AGAP (test code = 9050876170) 2-16 BUN (test code = 0188360213) 20 mg/dL 7-23 GLUCOSE (test code = 6964317200) 85 mg/dL 70-110 CREATININE (test code = 1497076832) 0.99 mg/dL 0.6-1.25 CALCIUM (test code = 4576526833) 9.7 mg/dL 8.6-10.6 eGFR Calculation (Non-) (test code = 0435095102) mL/min/1.73m2 eGFR Calculation () (test code = 4391961012) mL/min/1.73m2 MARU (test code = MARU) Association of Glomerular Filtration Rate (GFR) and Staging of Kidney Disease* + --+ --+ ------+| GFR (mL/min/1.73 m2) ?| With Kidney Damage ?| ?Without Kidney Damage+ --------+ --------+ +| ?>90 ?| ?Stage one ?| ? Normal ?+ ---+ ---+ -------+| ?60-89 ?| ?Stage two ?| ? Decreased GFR ? + --+ --+ ------+| ?30-59 ?| ?Stage three ?| ? Stage three ? + --+ --+ ------+| ?15-29 ?| ?Stage four ? | ? Stage four ?+ ---+ ---+ -------+| ?<15 (or dialysis) ? ?| ?Stage five ? | ? Stage five ?+ ---+ ---+ -------+ *Each stage assumes the associated GFR level has been in effect for at least three months. ?Stages 1 to 5, with or without kidney disease, indicate chronic kidney disease. Notes: Determination of stages one and two (with eGFR >59mL/min/1.73 m2) requires estimation of kidney damage for at least three months as defined by structural or functional abnormalities of the kidney, manifested by either:Pathological abnormalities or Markers of kidney damage (including abnormalities in the composition of the blood or urine or abnormalities in imaging tests). Lab Interpretation (test code = 49376-1) Abnormal [facility] WITH ZNJW6671-70-41 07:35:00* Test Item Value Reference Range Interpretation Comme nts WBC (test code = 6690-2) See_Comment [Automated [email or web address]] The system which generated this result transmitted reference range: 4.20 - 10.70 10*3/?L. The reference range was not used to interpret this result as normal/abnormal. RBC (test code = 789-8) See_Comment [Automated [email or web address]] The system which generated this result transmitted reference range: 4.26 - 5.52 10*6/?L. The reference range was not used to interpret this result as normal/abnormal. HGB (test code = 718-7) 15.2 g/dL 12.2-16.4 HCT (test code = 4544-3) 44.9 % 38.4-49.3 MCV (test code = 787-2) 93.0 fL 81.7-95.6 MCH (test code = 785-6) 31.5 pg 26.1-32.7 MCHC (test code = 786-4) 33.9 g/dL 31.2-35 RDW-SD (test code = 35441-0) 44.1 fL 38.5-51.6 RDW-CV (test code = 788-0) 12.8 % 12.1-15.4 PLT (test code = 777-3) See_Comment [Automated [email or web address]] The system which generated this result transmitted reference range: 150 - 328 10*3/?L. The reference range was not used to interpret this result as normal/abnormal. MPV (test code = 51758-1) 10.8 fL 9.8-13 NRBC/100 WBC (test code = 2435149016) See_Comment [Automated me ssage] The system which generated this result transmitted reference range: 0.0 - 10.0 /100 WBCs. The reference range was not used to interpret this result as normal/abnormal. NRBC x10^3 (test code = 7720173882) <0.01 See_Comment [Automated me ssage] The system which generated this result transmitted reference range: 10*3/?L. The reference range was not used to interpret this result as normal/abnormal. GRAN MAT (NEUT) % (test code = 770-8) 59.2 % IMM GRAN % (test code = 2130017118) 0.20 % LYMPH % (test code = 736-9) 33.0 % MONO % (test code = 5905-5) 6.6 % EOS % (test code = 713-8) 0.7 % BASO % (test code = 706-2) 0.3 % GRAN MAT x10^3(ANC) (test code = 5459542154) 5.66 10*3/uL 1.99-6.95 IMM GRAN x10^3 (test code = 5995980983) <0.03 0-0.06 LYMPH x10^3 (test code = 731-0) 3.16 10*3/uL 1.09-3.23 MONO x10^3 (test code = 742-7) 0.63 10*3/uL 0.36-1.02 EOS x10^3 (test code = 711-2) 0.07 10*3/uL 0.06-0.53 BASO x10^3 (test code = 704-7) 0.03 10*3/uL 0.01-0.09 [facility] Idxjqpcu1878-68-73 06:48:00Caitlyn Ortiz MD ? ? 10/19/2019 ?1:57 AMOrtho FracturePerformed by: Caitlyn Ortiz MDAuthorized by: Caitlyn Ortiz MD Consent: ?Consent obtained: ?Verbal ?Consent given by: ?Patient ?Risks discussed: ?Pain ?Alternatives discussed: ?No treatmentInjury: ?Injury location: ?Hand ?Hand injury location: ?R hand ?Hand fracture type: fourth metacarpal ? ?Hand fracture type comment: ?And5th headPre-procedure assessment: ?Neurological function: normal ? ?Distal perfusion: normal ? ?Range of motion: reduced ?Anesthesia (see MAR for exact dosages): ?Anesthesia method: ?Nerve block ?Block needle gauge:?24 G ?Block anesthetic: ?Lidocaine 1% w/o epi ?Block technique: ?Hematoma ?Block injection procedure: ?Anatomic landmarks identified, anatomic landmarks palpated, introduced needle and incremental injection ?Block outcome: ?Incomplete blockProcedure details: ?Manipulation performed: yes ? ?Skin traction used: no ? ?Skeletal traction used: no ? ?Pin inserted: no ? ?Reduction successful: no ? ?X-ray confirmed reduction: no ? ?Immobilization: ?Splint ?Splint type: ?Ulnar gutter ?Supplies used: ?Cotton padding, Ortho-Glass and elastic bandagePost- procedure assessment: ?Neurological function: normal ? ?Distal perfusion: normal ? ?Range of motion: unchanged ? ?Patient tolerance of procedure: ?Tolerated with difficultyHouston [facility] Notes Date/Time Note Provider Source 2023-04-11 21:00:09 6798-35-97R02:00:09F ormatting of this note might be different from the original.Pt discharged to home, pt given printed and verbal discharge instructions regarding diagnosis provided and follow up with PCP.Pt verbalized understanding of instructions, pt awake alert oriented, resp reg unlabored, skin w/d, color appropriate for race, moves all ext well.No adverse reaction to meds given in ER noted upon discharge.Prescription for Tylenol#3 given, discussed side affects and to avoid driving/operating machinery/or engaging in activities requiring alertness while taking.Advised to seek medical attention for new/prolonged/worsening of symptoms, pt left per wheelchair, in no apparent distress. 28306-7Tiojkgogu department MuqwKA9420-33-76C14:01:38Emergen department NoteTXT1.2.840.563819.1.13.104.2.7 .2.849476|[id number] for patient dldt85826-0OshcBIBWLMEUDGKPdpxitaz d C-CDA narrative [id number] C Caranto RNUT[id number] 62KKYGWSPOMRBDLNMPNZJBER0154-78-17 T21:01:381.2.840.159583.1.72.3.15| 1.2.840.104224.1.13.104.2.7.2.7278 [id number] Lynn Salomon RN [facility] 2023-04-11 19:06:02 2990-96-92P14:06:02F ormatting of this note might be different from the original.Nurse ReportReport given to Lynn FAJARDO . Chief complaint, assessment findings, infusion verify and orders reviewed. Plan of care discussed at bedside with patient and both nurses. Patient/family [place] [address]-1Mgymzkewd department RenwEP7555-76-98A80:06:09[facility] NoteTXT1.2.840.086610.1.13.104.2.7 .2.352174|[id number] for patient nwyv68307-4OvruYWRQOLNJYMEGlulupuq d C-CDA narrative [id number] J Willis RNUT[id number] 06HRDTDSUWCNPSWGDGFLLAAA6179-30-25 T19:06:091.2.840.125970.1.72.3.15| 1.2.840.535099.1.13.104.2.7.2.7278 [id number] Kerrie Mosqueda RN [facility] 2023-04-11 18:03:10 9870-12-56T40:03:10F ormatting of this note is different from the original.Pt is a 37 year old male presenting to the ER forChief ComplaintPatient presents withToe PainLacerationAmbulatory to triage. Pt dropped 3/4 plywood on great toe 3 hours ago, pt great toe bleeding on l foot, kerlix applied to toe, pt stating up to date tetanus as of last year. 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.Pt endorsing (10)/10 pain at this time.Pt denies cp, sob, fever, chills, cough, sore throat, headache, dizziness, blurred vision, abd pain, n/v/d.Pt has equal and unlabored respirations, no increased WOB, skin is warm, dry and intact, color appropriate to ethnicity, GARCIA, ambulatory.Vitals:04/11/23 1802Weight: 127 kg (280 lb)Height: 1.88 m (6' 2") [address]156-5Herokcrnh department Triage unitZU2413-92-28Q89:06:15[facility] department Triage noteTXT1.2.840.496434.1.13.104.2.7 .2.335969|[id number] for patient uvsa70825-3Qqdmjolqm department NoteLNNARRATIVEFormatted C-CDA narrative [id number] A Lene RN[id number] 96IUXHOBOZNTMJHWBYOCRPQZ8436-32-07 T18:06:151.2.840.126252.1.72.3.15| 1.2.840.248697.1.13.104.2.7.2.7278 [id number] Shawn Robertson RN [facility] 2023-02-15 18:36:56 9264-72-36Z44:36:56F ormatting of this note might be different from the original.Patient discharged to home, patient given printed and verbal discharge instructions regarding diagnosis provided and follow up with PCP. Patient verbalized understanding of instructions. Patient awake alert oriented, resp reg unlabored, skin warm and dry, color appropriate for race. No adverse reaction to meds given in ER noted upon discharge. Discussed medications. Advised to seek medical attention for new/prolonged/worsening of symptoms, patient ambulated from unit with steady gait in no apparent distress. [address] HlkrGW1403-08-88N81:37:04[facility] department NoteTXT1.2.840.030243.1.13.104.2.7 .2.500743|[id number] for patient uafh40950-7PomkWPJXIOMWGBTVhvblhvo d C-CDA narrative [id number] Conn RN[id number] 24PFRHHLWMCDEHUBLGLZXVLJ4192-82-87 T18:37:041.2.840.670770.1.72.3.15| 1.2.840.981225.1.13.104.2.7.2.7278 [id number] Stephany Conn RN [facility] 2023-02-15 17:37:50 0038-39-92L59:37:50F ormatting of this note might be different from the original.Yvette Lane is a 37 year old male presents to ED with reports of developing constant mid chest pain with a headache, and a non-productive cough x 3 days. Reports no one else in the house with the same symptoms. Reports no changes in the swelling to his lower extremities. AOX4, placed on full electronic device monitor, at bedside, call light within reach, bed locked and in lowest position. [address]-[address] KssxWS2662-28-05V57:39:25[facility] department NoteTXT1.2.840.376513.1.13.104.2.7 .2.803252|[id number] for patient uivt93538-3YzboKMOXUZBCGZUFuyaqwng d C-CDA narrative [id number] R Mancha [id number] 55WZJBIMKSBMUOJIVPFGIIHT8993-41-15 T17:39:251.2.840.349851.1.72.3.15| 1.2.840.883100.1.13.104.2.7.2.7278 [id number] Fifi Mercado RN [facility] 2023-02-15 16:31:14 6482-05-20F69:31:14F ormatting of this note is different from the original.Yvette Lane is a 37 year old male c/o CP, KIMBLE, cough x 3 days. Pt also reports SOB. Denies fevers at this timeEKG @ 1642Past Medical History:Diagnosis DateKidnricardo canales 55398-7Ntcwcbptc department Triage jfblDW7295-89-18P11:43:25[facility] department Triage noteTXT1.2.840.651181.1.13.104.2.7 .2.896013|[id number] for patient cdug56447-1Mxpeqgqzl department NoteLNNARRATIVEFormatted C-CDA narrative [id number] P Rozell RN[address] Bx[id number] 28SUUVXUDADUUHFRWXBBLGAP4685-43-45 T16:43:251.2.840.302173.1.72.3.15| 1.2.840.179201.1.13.104.2.7.2.7278 [id number] Ru Nj RN [facility] 2023-02-15 16:13:00 6379-04-49I47:13:00A ssociated Order(s): EKG-12 Lead ROUTINE ONCEPre-Procedure Diagnose(s): Chest pain, unspecified typePost-Procedure Diagnose(s): Chest pain, unspecified type [facility] Emergency Department NotePatient Name: Yvette LaneDate of : 1985 37 year old maleTreatment Room: Room/bed info not foundMedical Record Number: [id number] Care Physician: PATIENT DOES NOT HAVE A PCPPatient Escorted by: Self [9]Mode of Arrival: Personal means [1]EMS Treatment Prior to ED Arrival: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 treatment: NoneTravel and Exposure Screening:SymptomsDoes patient have any of these symptoms?: (not recorded)Exposure ScreeningHas patient had contact with someone with a communicable disease in the last month?: (not recorded)Diseases exposed to:: (not recorded)Is Patient ?: (not recorded)Exposure Date: (not recorded)Chief Complaint:Chief ComplaintPatient presents withChest PainHeadacheHistory of Present Illness:37 yo M presents for having concern of chest pain and pressure that started 3 days ago with a headache, pt states is midsternal pressure, pt last had similar when had pna about 4 years ago. Pt states also with some cough, congestion, and runny nose. Pt denies any abd pain, vomiting, diarrhea at this time.History provided by: PatientLanguage educational institution president used: ViviComicaela characteristics: Non-productiveSputum characteristics: NondescriptSeverity: ModerateOnset quality: GradualDuration: 3 daysTiming: ConstantProgression: UnchangedChronicity: NewRelieved by: NothingWorsened by: NothingAssociated symptoms: chest pain, headaches, rhinorrhea, shortness of breath and sinus congestionAssociated symptoms: no chills, no eye discharge, no fever, no rash and no sore throatPast Medical History/Immunizations:Past Medical History:Diagnosis Alen Parmar received in last 5 years: YesAllergies:AllergiesAllergen ReactionsDemerol (Pf) [Meperidine (Pf)] HivesFish [Seafood/Fish] AnaphylaxisIvp Dye [Iodine And Iodide Containing Products] AnaphylaxisShellfish Derived AnaphylaxisPast Social History:Tobacco UseEvery Day; 1 pack/day for 15.00 years; Types: CigarettesSmokeless Tobacco: Current user of smokeless tobacco.Alcohol UseNo.Drug UseNo.Sexual ActivitySexually active; Partners: Female.Past Surgical History:Past Surgical History:Procedure Laterality DateRETROGRADE PYELOGRAM Left 08/31/2017Surgeon: Waylon Valderrama MD; Location[facility] LocationSTENT PLACEMENT (SHX) Left 08/31/2017Surgeon: Waylon Valderrama MD; Location: [facility] OR SandiURETEROSCOPIC STONE MANIPULATION Left 08/31/2017Surgeon: Waylon Valderrama MD; Location: [facility] OR SandiReview of Systems:Review of SystemsConstitutional: Negative for chills and fever.HENT: Positive for rhinorrhea. Negative for sore throat.Eyes: Negative for pain and discharge.Respiratory: Positive for cough and shortness of breath.Cardiovascular: Positive for chest pain. Negative for palpitations.Gastrointestinal: Negative for abdominal pain, diarrhea, nausea and vomiting.Genitourinary: Negative for dysuria and hematuria.Musculoskeletal: Negative for back pain and neck pain.Skin: Negative for rash.Neurological: Positive for headaches. Negative for dizziness.Psychiatric/Behavioral: Negative for agitation and confusion.Physical Exam:ED Triage VitalsWeight 02/15/23 1632 127 kg (280 lb)Actual or estimated --Height 02/15/23 1632 1.88 m (6' 2")BP 02/15/23 1634 (!) 162/105Pulse 02/15/23 1634 90Resp 02/15/23 1634 30Temp 02/15/23 1634 36.7 ?C (98 ?F)Temp src --SpO2 02/15/23 1634 96 %Measured on 02/15/23 1730 Room airPhysical ExamVitals and nursing note reviewed.Constitutional:Appearance : Normal appearance.HENT:Head: Normocephalic.Mouth/Throat:Mouth: Mucous membranes are moist.Eyes:Extraocular Movements: Extraocular movements intact.Cardiovascular:Rate and Rhythm: Normal rate and regular rhythm.Pulmonary:Effort: Pulmonary effort is normal. No respiratory distress.Breath sounds: No wheezing.Abdominal:General: There is no distension.Palpations: Abdomen is soft.Tenderness: There is no abdominal tenderness. There is no guarding.Musculoskeletal:General: No swelling.Skin:General: Skin is warm and dry.Neurological:Mental Status: He is alert. Mental status is at baseline.Psychiatric:Mood and Affect: Mood normal.Behavior: Behavior normal.Radiology:XR CHEST 1 VWFinal ResultPROCEDURE: XR CHEST 1 VWCLINICAL INDICATION: chest painCOMPARISON: 12/16/2021FINDINGS:The lung volumes are low with crowding of perihilar structures.No pleural effusion or pneumothorax is seen.The cardiomediastinal silhouette is normal.No acute bony abnormality.IMPRESSIONNo acute intrathoracic abnormality.Lab Results:Lab ResultsCOMP. METABOLIC PANEL (13356) - AbnormalResult Value Ref RangeNA 142 135 - 145 mmol/LK 4.3 3.5 - 5.0 mmol/LCL 106 98 - 108 mmol/LCO2 TOTAL 20 (*) 23 - 31 mmol/LAGAP 16 2 - 16BUN 12 7 - 23 mg/dLGLUCOSE 121 (*) 70 - 110 mg/dLCREATININE 0.78 0.60 - 1.25 mg/dLTOTAL BILI 0.6 0.1 - 1.1 mg/dLCALCIUM 9.2 8.6 - 10.6 mg/Mayco PROTEIN 7.4 6.3 - 8.2 g/dLALBUMIN 4.2 3.5 - 5.0 g/dLALK PHOS 67 34 - 122 U/LALTv 53 (*) 5 - 50 U/LAST(SGOT) 35 13 - 40 U/LeGFR 116.3 mL/min/1.09n5DEVXLUTH I - NormalTROPONIN I 0.006 <=0.034 ng/mLN-TERMINAL PRO-BNP - NormalNT-proBNP 54 <=125 pg/mLCOVID-19 (ID NOW RAPID TESTING) - NmndszDBEG-YyK-9 Rapid ID NOW Not Detected Not DetectedRAPID INFLUENZA A/B - NormalRapid Influenza A Negative NegativeRapid Influenza B Negative NegativeCBC WITH DIFFWBC 7.16 4.20 - 10.70 10*3/?LRBC 4.97 4.26 - 5.52 10*6/?LHGB 15.2 12.2 - 16.4 g/dLHCT 44.3 38.4 - 49.3 %MCV 89.1 81.7 - 95.6 fLMCH 30.6 26.1 - 32.7 pgMCHC 34.3 31.2 - 35.0 g/dLRDW-SD 41.5 38.5 - 51.6 fLRDW-CV 12.6 12.1 - 15.4 %PLT 248 150 - 328 10*3/?LMPV 10.4 9.8 - 13.0 fLNRBC/100 WBC 0.0 0.0 - 10.0 /100 WBCsNRBC x10^3 <0.01 10*3/?LGRAN MAT (NEUT) % 65.1 %IMM GRAN % 0.10 %LYMPH % 25.4 %MONO % 7.7 %EOS % 1.4 %BASO % 0.3 %GRAN MAT x10^3(ANC) 4.66 1.99 - 6.95 10*3/uLIMM GRAN x10^3 <0.03 0.00 - 0.06 10*3/uLLYMPH x10^3 1.82 1.09 - 3.23 10*3/uLMONO x10^3 0.55 0.36 - 1.02 10*3/uLEOS x10^3 0.10 0.06 - 0.53 10*3/uLBASO x10^3 <0.03 0.01 - 0.09 10*3/uLEKG:If EKG completed, see Procedure Note.Orders and Treatments:Orders Placed This EncounterProceduresXR CHEST 1 VWCBC WITH DIFFCOMP. METABOLIC PANEL (63293)TROPONIN IN-TERMINAL GRX-HEKBBXKH-77 (ID NOW TESTING)RAPID INFLUENZA A/BLab Only COVID InterpretationOrders Placed This EncounterMedicationsNaCl 0.9% (NS) bolus infusion 1,000 mLketorolac (TORADOL) injection 15 mgFirst Provider Eval:ED EventsDate/Time Event User Irpbprit36/08/24 1623 Medical Screening Begins GHADA VARGHESE MD, I. --02/15/23 1623 First Provider Evaluation GHADA VARGHESE MD, I. --ED COURSEDiagnosis/Impression as of 02/15/23 1818Chest pain, unspecified typeUpper respiratory tract infection, unspecified typeProcedures:EKG-12 Lead ROUTINE ONCEDate/Time: 02/15/2023 4:45 PMPerformed by: Ghada Varghese MDAuthorized by: Ghada Varghese MDECLakisha interpreted by ED Physician in the absence of a retail sales director: yesRate:ECG rate: 87ECG rate assessment: normalRhythm:Rhythm: sinus rhythmQRS:QRS axis: LeftQRS intervals: NormalQRS conduction: normalST segments:ST segments: Non-specificT waves:T waves: non-specificMDM:Medical Decision MakingThe differential diagnosis includes but not limited to viral URI, pneumonia, influenza, bronchitis, bronchiolitis, croup, foreign body aspiration, CHF, cystic fibrosis, asthma, ILD, side effect of medication (ACEI), allergic reaction, malignancy, copd/emphysema, COVID.DDX includes causes considered but not specified given they were low prob or unlikely to cause immediate or disability. Workup for unlisted, unlikely, or benign causes would likely have yielded harm exceeding benefit.Pt with likely URI to f/u with PCP and continue with supportive care and return for any worsening symptoms of concern.Amount and/or Complexity of Data ReviewedLabs: ordered.Radiology: ordered.ECG/medicine tests: ordered and independent interpretation performed. Decision-making details documented in ED Course.RiskPrescription drug management.Flowsheet Documentation:Scoring Tools:No data recordedDisposition/Condition:ED DispositionED DispositionDisch - HomeConditionStableComment--Discha rge Medications:Patient's MedicationsSTART taking these medicationsNo medications on fileCONTINUE taking these medications which have NOT CHANGEDCHLORHEXIDINE 0.12 % MOUTHWASH Swish and spit out 15 mL 2 (two) times daily.CLOBETASOL 0.05 % OINTMENT Apply to area(s) 2 (two) times daily.ERYTHROMYCIN 5 MG/GRAM (0.5 %) OPHTHALMIC OINTMENT Place 0.5 Inches in right eye at bedtime. Continue until you follow up with eye doctor.IBUPROFEN 800 MG TABLET Take 1 tablet by mouth every 8 (eight) hours as needed for Pain (scale 4-6).MOXIFLOXACIN 0.5 % OPHTHALMIC DROPS Place 1 Drop in right eye in the morning and 1 Drop at noon and 1 Drop in the evening.START taking Modified Medications as PrescribedNo medications on fileSTOP taking these medicationsNo medications on fileFollow-up:Contact information for follow-upATRI[facility] [address]AEQL[address] [address]Xarqi: [phone] signed by:Ghada Varghese MD02/15/231817 [address]-3Mcqxyquon Emergency department UyxoFD4307-74-17A26:18:55Physician Emergency department NoteTXT1.2.840.755215.1.13.104.2.7 .2.436840|[id number] for patient fhcv67496-9Npxaptpqd department NoteLNNARRATIVEFormatted C-CDA narrative textUT[address] Fs[id number] 61HPNYXVLMPNWZFVLWUNVOPX3871-12-34 T18:18:551.2.840.661849.1.72.3.15| 1.2.840.781896.1.13.104.2.7.2.7278 [id number] [facility]
[2023-08-15] MEDS ORDERED: DIPHENHYDRAMINE 50 MG/ML VIAL ONE (02:40)
[2023-08-15] MEDS ORDERED: METOCLOPRAMIDE 10 MG/2mL INJ ONE (02:41)
[2023-08-15] MEDS ORDERED: KETOROLAC 30 MG/ML INJ ONE (02:41)
[2023-08-15] MEDS ORDERED: NA CHLORIDE 0.9% 1,000 ML ONE (02:41)
--- NOTE | 2023-08-15 03:05 | ER ---
Nurse's Notes [facility] Name: Nagi Lane Age: 38 yrs Sex: Male : 1985 Arrival Date: 08/15/2023 Time: 01:02 Bed 2 Private MD: Diagnosis: Headache Presentation: 08/14 01:12 Chief complaint: Patient states: Pressure and pain on right side of face by eye. vc1 Coronavirus screen: Client denies travel out of the [place] in the last 14 days. At this time, the client does not indicate any symptoms associated with coronavirus-19. Ebola Screen: Patient negative for fever greater than or equal to 101.5 degrees Fahrenheit, and additional compatible Ebola Virus Disease symptoms Patient denies exposure to infectious person. Patient denies travel to an Ebola-affected area in the 21 days before illness onset. No symptoms or risks identified at this time. Mechanism of Injury: No Mechanism of Injury. The patient reports a positive loss of vision. The patient's loss of vision began 2-3 days ago. Initial Sepsis Screen: Does the patient meet any 2 criteria? No. Patient's initial sepsis screen is negative. Does the patient have a suspected source of infection? No. Patient's initial sepsis screen is negative. Risk Assessment: Do you want to hurt yourself or someone else? Patient reports no desire to harm self or others. Onset of symptoms was August 15, 2023. 01:12 Method Of Arrival: Ambulatory vc1 01:12 Acuity: VICKI 4 vc1 Historical: - Allergies: 01:15 Iodine; vc1 - Home Meds: 01:15 None [Active]; vc1 - PMHx: 01:15 None; vc1 - PSHx: 01:15 None; vc1 - Immunization history:: Client reports receiving the 2nd dose of the Covid vaccine, Flu vaccine is not up to date. - Infectious Disease History:: Denies. - Social history:: Smoking status: Patient denies any tobacco usage or history of. Screenin:16 [facility] ED Fall Risk Assessment (Adult). Abuse screen: Denies threats or abuse. vc1 Nutritional screening: No deficits noted. Tuberculosis screening: No symptoms or risk factors identified. 02:00 [facility] ED Fall Risk Assessment (Adult) History of falling in the last 3 months, ha1 including since admission No falls in past 3 months (0 pts) Confusion or Disorientation No (0 pts) Intoxicated or Sedated No (0 pts) Impaired Gait No (0 pts) Mobility Assist Device Used No (0 pt) Altered Elimination Score/Fall Risk Level 0 - 2 = Low Risk Oriented to surroundings, Maintained a safe environment, Educated pt \\T\\ family on fall prevention, incl call for assistance when getting out of bed, Hourly rounding (assess needs \\T\\ fall precautionary measures) done. Assessment: 02:20 General: Appears uncomfortable, Behavior is cooperative. Pain: Complains of pain in ha1 right eye and right religious Pain does not radiate. Pain currently is 9 out of 10 on a pain scale. Quality of pain is described as crampy, Pain began gradually, 2-3 days ago. Neuro: Level of Consciousness is awake, alert, obeys commands, Oriented to person, place, time, situation. Cardiovascular: Capillary refill < 3 seconds Patient's skin is warm and dry. Respiratory: Airway is patent Respiratory effort is even, unlabored, Respiratory pattern is regular, symmetrical. EENT: Eyes clear. Sclera/Cornea Reports pain in right eye and right religious. Derm: Skin is pink, warm \\T\\ dry. Vital Signs: 01:12 Weight 139.71 kg; Height 6 ft. 2 in. ; Pain 8/10; vc1 01:18 BP 147 / 95; Pulse 74; Resp 18; Temp 97.5; Pulse Ox 95% ; vc1 02:30 BP 143 / 91; Pulse 59; Resp 17 S; Pulse Ox 98% on R/A; ha1 01:12 Body Mass Index 39.54 (139.71 kg, 187.96 cm) vc1 01:12 Pain Scale: Adult vc1 Visual Acuity: 03:20 Both Eyes Visual acuity 20/20; Without Lenses; ha1 ED Course: 01:04 Patient arrived in ED. im 01:04 Freddie May PA is PHCP. cp 01:04 Freddie Beasley MD is Attending Physician. cp 01:14 Triage completed. vc1 01:16 Arm band placed on left wrist. vc1 02:00 Patient has correct armband on for positive identification. Bed in low position. Call [facility] light in reach. Side rails up X 1. Adult w/ patient. 02:00 No provider procedures requiring assistance completed. ha1 02:20 Inserted saline lock: 20 gauge in left antecubital area, using aseptic technique. Blood ha1 collected. 02:31 Loyd Weaver, RN is Primary Nurse. tm6 03:20 Provided Education on: need to stay and complete care. pt. states " I just want to go ha1 home". 03:20 IV discontinued, intact, bleeding controlled, No redness/swelling at site. Pressure ha1 dressing applied. Administered Medications: 02:30 Drug: NS 0.9% IV 1000 ml IV at 1 bolus Per protocol; 1000 mL bolus Route: IV; Rate: 1 ha1 bolus; Site: left antecubital; 03:20 Follow up: Response: No adverse reaction; IV Status: Completed infusion; IV Intake: ha1 500ml 02:30 Drug: metoCLOPramide IVP 10 mg IVP once; over 1 to 2 minutes Route: IVP; Site: left ha1 antecubital; 03:20 Follow up: Response: No adverse reaction; Marked relief of symptoms ha1 02:32 Drug: diphenhydrAMINE IVP 25 mg IVP once Route: IVP; Site: left antecubital; ha1 03:00 Follow up: Response: No adverse reaction; Marked relief of symptoms ha1 02:34 Drug: Ketorolac IVP 30 mg IVP once Route: IVP; Site: left antecubital; ha1 03:00 Follow up: Response: No adverse reaction; Marked relief of symptoms ha1 Medication: 03:20 VIS not applicable for this client. ha1 Intake: 03:20 IV: 500ml; Total: 500ml. ha1 Outcome: 03:04 Discharge ordered by . cp 03:20 Condition: stable ha1 03:20 Discharged to home ambulatory, with family, ha1 03:20 Discharge instructions given to patient, family, Instructed on discharge instructions, follow up and referral plans. medication usage, Demonstrated understanding of instructions, follow-up care, medications, 03:20 Patient left the ED. ha1 Signatures: Freddie May PA PA cp Calcote, Vanessa, RN RN vc1 Mila Wooten RN RN ha1 Marilyn Jensen Tawney, SCOTTY RN tm6 Corrections: (The following items were deleted from the chart) 01:16 01:15 Allergies: No Known Allergies; vc1 vc1 03:04 01:30 Ketorolac IVP 30 mg IVP in left antecubital ha1 ha1 03:04 01:32 diphenhydrAMINE IVP 25 mg IVP in left antecubital ha1 ha1 03:34 03:33 Patient left the ED. ha1 ha1
--- NOTE | 2023-08-15 03:05 | EDPHYS ---
Physician Documentation [facility] Name: Nagi Lane Age: 38 yrs Sex: Male : 1985 Arrival Date: 08/15/2023 Time: 01:02 Bed 2 Private MD: ED Physician Freddie Beasley HPI: 08/14 01:25 This 38 yrs old Male presents to ER via Ambulatory with complaints of Eye Pain, Ear cp Pain, Eye Swelling. 01:25 to the right eye, pain and pressure. cp 01:25 Onset: The symptoms/episode began/occurred today. Duration: the symptoms are cp continuous. Associated signs and symptoms: Pertinent positives: headache, Pertinent negatives: dizziness, ear ache, fever. Patient does not utilize any form of vision correction. Severity of symptoms: in the emergency department the symptoms are unchanged despite home interventions. Patient reports being diagnosed with right side sinus infection after being seen at [place] yesterday. Has been prescribed antibiotics and has copy of CT on disc in hand. Historical: - Allergies: 01:15 Iodine; vc1 - Home Meds: 01:15 None [Active]; vc1 - PMHx: 01:15 None; vc1 - PSHx: 01:15 None; vc1 - Immunization history:: Client reports receiving the 2nd dose of the Covid vaccine, Flu vaccine is not up to date. - Infectious Disease History:: Denies. - Social history:: Smoking status: Patient denies any tobacco usage or history of. ROS: 01:30 Constitutional: Negative for body aches, chills, fever, poor PO intake, cp 01:30 Eyes: Positive for blurry vision, cp 01:30 ENT: Negative for drainage from ear(s), ear pain, sore throat, dental pain, difficulty swallowing, difficulty handling secretions, 01:30 Respiratory: Negative for cough, shortness of breath, wheezing, 01:30 Abdomen/GI: Negative for abdominal pain, vomiting, diarrhea, constipation, 01:30 Neuro: Positive for headache, Negative for altered mental status, dizziness, numbness, weakness, 01:30 All other systems are negative, Exam: 01:40 Constitutional: The patient appears in no acute distress, alert, awake, cp non-diaphoretic, non-toxic, well developed, well nourished, obese, 01:40 Head/Face: Normocephalic, atraumatic. cp 01:40 Eyes: Periorbital structures: appear normal, Pupils: equal, round, and reactive to light and accomodation, Extraocular movements: intact throughout, Conjunctiva: normal, no exudate, no injection, Sclera: no appreciated abnormality, Lids and lashes: appear normal, bilaterally, 01:40 ENT: External ear(s): are unremarkable, Nose: is normal, Mouth: Lips: moist, Oral mucosa: pink and intact, moist, Posterior pharynx: is normal, airway is patent, no erythema, no exudate, 01:40 Neck: External neck: is normal, ROM/movement: is normal, is supple, without pain, no range of motions limitations, 01:40 Cardiovascular: Rate: normal, Rhythm: regular, Edema: is not appreciated, JVD: is not appreciated, 01:40 Respiratory: the patient does not display signs of respiratory distress, Respirations: normal, no use of accessory muscles, labored breathing, is not present, Breath sounds: are clear throughout, no decreased breath sounds, no stridor, no wheezing, 01:40 Abdomen/GI: Inspection: abdomen appears normal, 01:40 Neuro: Orientation: to person, place \T\ time. Mentation: is normal, Cerebellar function: is grossly normal, Motor: moves all fours, strength is normal, Sensation: is normal, Gait: is steady, at a normal pace, without difficulty, Vital Signs: 01:12 Weight 139.71 kg; Height 6 ft. 2 in. ; Pain 8/10; vc1 01:18 BP 147 / 95; Pulse 74; Resp 18; Temp 97.5; Pulse Ox 95% ; vc1 02:30 BP 143 / 91; Pulse 59; Resp 17 S; Pulse Ox 98% on R/A; ha1 01:12 Body Mass Index 39.54 (139.71 kg, 187.96 cm) vc1 01:12 Pain Scale: Adult vc1 Visual Acuity: 03:20 Both Eyes Visual acuity 20/20; Without Lenses; ha1 MDM: 01:13 Patient medically screened. cp 03:05 ED course: patient reports pain improved and requests discharge to home. cp 03:05 Data reviewed: vital signs, nurses notes, and as a result, I will discharge patient. cp 03:05 Differential diagnosis: sinusitis, migraine, tension KIMBLE. I considered the following cp discharge prescriptions or medication management in the emergency department Medications were administered in the Emergency Department. See MAR. Counseling: I had a detailed discussion with the patient and/or guardian regarding the historical points, exam findings, and any diagnostic results supporting the discharge/admit diagnosis, the need for outpatient follow up, a family practitioner, to return to the emergency department if symptoms worsen or persist or if there are any questions or concerns that arise at home. Response to treatment: the patient's symptoms have mildly improved after treatment, and as a result, I will discharge patient. 08/14 01:23 Order name: Basic Metabolic Panel cp 08/14 01:23 Order name: CBC with Diff cp 08/14 01:23 Order name: PT-INR cp 08/14 01:23 Order name: Cardiac monitoring; Complete Time: 03:04 cp 08/14 01:23 Order name: IV Saline Lock; Complete Time: 03:04 cp 08/14 01:23 Order name: Labs collected and sent; Complete Time: 03:04 cp 08/14 01:23 Order name: O2 Per Protocol; Complete Time: 03:04 cp 08/14 01:23 Order name: O2 Sat Monitoring; Complete Time: 03:04 cp Administered Medications: 02:30 Drug: NS 0.9% IV 1000 ml IV at 1 bolus Per protocol; 1000 mL bolus Route: IV; Rate: 1 ha1 bolus; Site: left antecubital; 03:20 Follow up: Response: No adverse reaction; IV Status: Completed infusion; IV Intake: ha1 500ml 02:30 Drug: metoCLOPramide IVP 10 mg IVP once; over 1 to 2 minutes Route: IVP; Site: left ha1 antecubital; 03:20 Follow up: Response: No adverse reaction; Marked relief of symptoms ha1 02:32 Drug: diphenhydrAMINE IVP 25 mg IVP once Route: IVP; Site: left antecubital; ha1 03:00 Follow up: Response: No adverse reaction; Marked relief of symptoms ha1 02:34 Drug: Ketorolac IVP 30 mg IVP once Route: IVP; Site: left antecubital; ha1 03:00 Follow up: Response: No adverse reaction; Marked relief of symptoms ha1 Disposition: 04:21 Co-signature as Attending Physician, Freddie Beasley MD I agree with the assessment and bette plan of care. Disposition Summary: 08/15/23 03:04 Discharge Ordered Notes: Location: Home cp Problem: new cp Symptoms: have improved cp Condition: Stable cp Diagnosis - Headache cp Followup: cp - With: Private Physician - When: 2 - 3 days - Reason: Recheck today's complaints Discharge Instructions: - Discharge Summary Sheet cp - General Headache Without Cause cp Forms: - Medication Reconciliation Form cp - Antibiotic Education cp - Prescription Opioid Use cp - Patient Portal Instructions cp - Leadership Thank You Letter cp Prescriptions: - Anaprox DS 550 mg Oral Tablet - take 1 tablet ORAL route every 12 hours As needed; 20 tablet; Refills: 0, cp Product Selection Permitted Signatures: Dispatcher [employer] EDMS Freddie Beasley MD MD cha Page, Corey, Gerri Willson cp RN RN vc1 Mila Wooten RN RN ha1 Corrections: (The following items were deleted from the chart) 01:16 01:15 Allergies: No Known Allergies; vc1 vc1 03:08 03:07 This 38 yrs old Male presents to ER via Ambulatory with complaints of Eye Pain, cp Ear Pain, Eye Swelling. cp 03:08 01:30 This 38 yrs old Male presents to ER via Ambulatory with complaints of Eye Pain, cp Ear Pain, Eye Swelling. cp 03:18 03:01 Visual Acuity ordered. cp tm6
[2023-08-15 03:22] LABS: Absolute Eosinophils 0.1 K/uL (0-0.5); Absolute Lymphocytes (CBC) 3.2 K/uL (0.7-4.9); Absolute Monocytes 0.8 K/uL (0.1-1.3); Absolute Neutrophil 4.4 K/uL (1.8-8.0); Basophils % 0.4 % (0-1.3); Eosinophils % 0.9 % (0-4.4); Hematocrit 45.1 % (39.6-49.0); Hemoglobin 14.9 g/dL (13.6-17.9); Lymphocytes % 38.2 % (15.3-44.8); MPV 9.8 fL (7.6-11.3); Monocytes % 8.9 % (3.3-12.3); Neutrophils % 51.6 % (41.7-73.7); Platelets 218 thou/uL (152-406); RBC Red Blood Cell Count 4.79 M/uL (4.33-5.43); Red Cell Distribution Width 13.6 % (12.1-15.2)
[2023-08-15 03:26] LABS: Anion Gap 7.1 mEq/L (5.0-15.0); Potassium 4.1 mEq/L (3.5-5.1)
[2023-08-15 03:29] LABS: PT Prothrombin Time 10.8 SECONDS (9.4-12.5); Protime INR 0.98
[2023-08-15 04:03] VITALS: BP 143/91; TEMP 97.5; O2SAT 98
== END 2023-08-15 03:33 | disposition home or self-care (01) ==
LOC: ER 01:02
DX: R51.9 Headache, unspecified (principal); Z91.048 Other nonmedicinal substance allergy status
CPT/HCPCS: 96361; 85025; 80048; 36415; 85610; 96375; 96374; 99284; J2765; J1200; J7030